=== PATIENT | female | born 1995 | race Caucasian/White ===

== ENCOUNTER 2017-04-25 07:25 | Emergency (ER) | payer OTHER ==
[2017-04-25 07:31] VITALS: BP 105/64; PULSE 90; RESP 17; TEMP 97.5; O2SAT 92
--- NOTE | 2017-04-25 07:36 | EDPHY ---
H & P Stated Complaint: cut l index finger with knife cutting potatoes Time Seen by Provider: 04/25/17 07:36 HPI/ROS: Chief Complaint: Left index finger laceration HPI: The patient presents to the ED with a index finger laceration. The patient cut herself while working with a knife. The patient's tetanus shot is up-to-date. She denies any associated numbness or weakness. REVIEW OF SYSTEMS: Neuro: no headache, numbness, weakness Musculoskeletal: as above Skin: As above Source: Patient Exam Limitations: No limitations - Personal History LMP (Females 10-55): 8-14 Days Ago Current Tetanus/Diphtheria Vaccine: Yes Tetanus Vaccine Date: within 10 years - Medical/Surgical History Hx Asthma: No Hx Chronic Respiratory Disease: No Hx Diabetes: No Hx Cardiac Disease: No Hx Renal Disease: No Hx Cirrhosis: No Hx Alcoholism: No Hx HIV/AIDS: No Hx Splenectomy or Spleen Trauma: No Other PMH: Denies - Social History Smoking Status: Former smoker - Physical Exam Exam: General Appearance: Alert, no distress Neurological: Normal sensory and motor exam noted to the left upper extremity Skin: 1 cm laceration on the radial side of the left index finger distal phalanx. Musculoskeletal: Atraumatic Extremities: No evidence of of a tenderness or vascular injury noted Constitutional: Initial Vital Signs Temperature (C) 36.4 C 04/25/17 07:28 Heart Rate 90 04/25/17 07:28 Respiratory Rate 17 04/25/17 07:28 Blood Pressure 105/64 04/25/17 07:28 O2 Sat (%) 92 04/25/17 07:28 O2 Delivery Mode Room Air Allergies/Adverse Reactions: No Known Allergies Allergy (Verified 04/25/17 07:26) Home Medications: Medication Instructions Recorded Zoloft 100mg (*) 04/25/17 Medical Decision Making Procedures: Procedure: Laceration repair with skin glue. The 1 cm laceration on the left index finger. The wound was cleaned and explored to its base with a gloved finger. There were no deep structures involved. The wound was repaired with tissue adhesive. The procedure was performed by myself. ED Course/Re-evaluation: The patient's finger was copiously irrigated. She has a well-approximated superficial laceration involving the distal aspect of the left index finger. It was closed by myself using Dermabond. Departure - Departure Disposition: Home, Routine, Self-Care Clinical Impression: Laceration of left index finger Condition: Good Instructions: Skin Adhesive Care (ED) Additional Instructions: 1. Return to the ED for any redness, swelling, pain or other concerns. Referrals: NONE *PRIMARY CARE P,. [Primary Care Provider] - As per Instructions
[2017-04-25] MEDS ORDERED: SKIN ADHESIVE (DERMABOND) 1 EACH TP ONE ×3 (07:40→07:49)
== END 2017-04-25 08:00 | disposition home or self-care (01) ==
DX: S61.217A Laceration without foreign body of left little finger without damage to nail, initial encounter (principal); Z87.891 Personal history of nicotine dependence; W26.0XXA Contact with knife, initial encounter; Y93.89 Activity, other specified

== ENCOUNTER 2017-10-27 13:50 | Emergency (ER) | payer OTHER ==
--- NOTE | 2017-10-27 15:04 | EDPHY ---
H & P Stated Complaint: R foot injury Time Seen by Provider: 10/27/17 14:59 HPI/ROS: Chief Complaint: Right foot and ankle injury HPI: The patient presents the ED with complaints of right foot ankle pain after she jumped from a fence landing awkwardly yesterday. The patient reports pain with attempted ambulation. She denies additional injury. She denies any acute numbness or weakness. REVIEW OF SYSTEMS: Neuro: no headache, numbness, weakness Musculoskeletal: as above Skin: no abrasion or lacerations Source: Patient Exam Limitations: No limitations - Personal History LMP (Females 10-55): 8-14 Days Ago Current Tetanus/Diphtheria Vaccine: Yes Current Tetanus Diphtheria and Acellular Pertussis (TDAP): Yes Tetanus Vaccine Date: within 10 years - Medical/Surgical History Hx Asthma: No Hx Chronic Respiratory Disease: No Hx Diabetes: No Hx Cardiac Disease: No Hx Renal Disease: No Hx Cirrhosis: No Hx Alcoholism: No Hx HIV/AIDS: No Hx Splenectomy or Spleen Trauma: No Other PMH: Denies - Social History Smoking Status: Former smoker - Physical Exam Exam: General Appearance: Alert, no distress Skin: No lacerations, No abrasion Back: No midline T/L/S pain Extremities: Tenderness to palpation over the right heel and midfoot Neurological: 5/5 strength all 4 extremities, sensation intact to light touch Constitutional: Initial Vital Signs Temperature (C) 36.5 C 10/27/17 13:56 Heart Rate 104 H 10/27/17 13:56 Respiratory Rate 16 10/27/17 13:56 Blood Pressure 129/95 H 10/27/17 13:56 O2 Sat (%) 96 10/27/17 13:56 O2 Delivery Mode Room Air Allergies/Adverse Reactions: No Known Allergies Allergy (Verified 10/27/17 13:56) Home Medications: Medication Instructions Recorded Lexapro 10/27/17 Medical Decision Making - Diagnostics Imaging Results: Imaging Impressions Ankle X-Ray 10/27/17 14:00 Impression: 1. Normal right ankle series. 2. Normal right foot series. Foot X-Ray 10/27/17 14:00 Impression: 1. Normal right ankle series. 2. Normal right foot series. ED Course/Re-evaluation: Patient has no evidence of an obvious fracture noted on her x-ray. The patient will be placed in a Agrawal boot. She is advised to follow up with Orthopedic surgery for any ongoing symptoms. Ice and Advil as needed for symptom management. Departure - Departure Disposition: Home, Routine, Self-Care Clinical Impression: Right foot sprain Condition: Good Instructions: Musculoskeletal Pain (ED) Additional Instructions: 1. Agrawal boot for comfort. 2. Your x-ray demonstrates no evidence of an obvious fracture. 3. Follow up with the orthopedic surgeon for any pain which persists past 5-7 days as this may be the sign of an injury not noted on the x-ray today. Referrals: Gerson Durham MD [Medical Doctor] - As per Instructions
[2017-10-27 15:18] VITALS: BP 120/84
== END 2017-10-27 15:17 | disposition home or self-care (01) ==
DX: S93.601A Unspecified sprain of right foot, initial encounter (principal); X50.0XXA Overexertion from strenuous movement or load, initial encounter; Y93.39 Activity, other involving climbing, rappelling and jumping off; Y99.8 Other external cause status; Z87.891 Personal history of nicotine dependence
CPT/HCPCS: L4386

== ENCOUNTER 2017-11-05 06:04 | Emergency (ER) | payer OTHER ==
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
[2017-11-05] MEDS ORDERED: PROMETHAZINE HCL 25 MG TAB PO ONE (07:06)
[2017-11-05 07:27] VITALS: BP 130/91
[2017-11-05] MEDS ORDERED: ONDANSETRON DISINTEGRATING 4 MG TAB PO ONE (08:57)
[2017-11-05] MEDS ORDERED: AZITHROMYCIN 250 MG TAB PO ONE (08:57)
== END 2017-11-05 12:25 | disposition home or self-care (01) ==
LOC: EEVIPCON 06:04
DX: T74.21XA Adult sexual abuse, confirmed, initial encounter (principal); Z87.891 Personal history of nicotine dependence
CPT/HCPCS: J0696